=== PATIENT | female | born 1995 | race Caucasian/White ===

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

== ENCOUNTER 2018-02-08 07:15 | Emergency (ER) | payer OTHER, MEDICAID ==
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
[2018-02-08] MEDS ORDERED: ACETAMINOPHEN 325 MG TAB PO ONE (07:53)
[2018-02-08 10:17] VITALS: BP 113/69
== END 2018-02-08 10:16 | disposition home or self-care (01) ==
LOC: EDUNIT#
DX: S00.33XA Contusion of nose, initial encounter (principal); F10.920 Alcohol use, unspecified with intoxication, uncomplicated; V89.9XXA Person injured in unspecified vehicle accident, initial encounter; Y92.9 Unspecified place or not applicable; Y93.9 Activity, unspecified; Y99.9 Unspecified external cause status
CPT/HCPCS: G0480